=== PATIENT | female | born 1975 | race Two or more races ===

== ENCOUNTER 2016-03-22 19:18 | Emergency (ER) | payer MEDICAID, OTHER ==
[~2016-03-22] VITALS: Ht 167.6 cm; Wt 90.7 kg
[2016-03-22 20:05] LABS: Basophils # (auto) 0 uL; Basophils % (auto) 0.2 % (0.0-2.0); Eosinophils # (auto) 0 uL; Eosinophils % (auto) 0.5 % (0.0-7.0); Hematocrit 39.5 % (36.0-46.0); Hemoglobin 12.6 g/dL (12.2-16.2); Lymphocytes # (auto) 1.7 uL; Lymphocytes % (auto) 32.8 % (10.0-50.0); Mean Corpuscular Hemoglobin 27.7 pg (28.0-32.0); Mean Corpuscular Hgb Conc. 31.9 g/dL (32.0-36.0); Mean Corpuscular Volume 86.8 fL (80.0-100.0); Mean Platelet Volume 8.3 fL (7.4-10.4); Monocytes # (auto) 0.3 uL; Monocytes % (auto) 6.2 % (0.0-12.0); Neutrophils # (auto) 3.2 uL; Neutrophils % (auto) 60.3 % (37.0-80.0); Platelet Count (auto) 233 10^3/uL (140-450); Red Cell Distribution Width 13.7 % (11.6-16.0); White Blood Cell 5.3 10^3/uL (4.4-10.8)
[2016-03-22 20:30] LABS: Urine Bilirubin Negative (Negative); Urine Blood Negative /uL (Negative); Urine Color Yellow (Yellow); Urine Glucose Normal (Normal); Urine Ketone Negative (Negative); Urine Urobilinogen Normal (Negative); Urine pH 5.5 (5.0-8.0)
[2016-03-22 20:31] LABS: Urine Nitrite Negative (Negative); Urine RBC 0 /hpf (0 - 4); Urine Squamous Epithelial Cell FEW /hpf (<5)
[2016-03-22] MEDS ORDERED: SODIUM CHLORIDE 0.9% 1,000 ML IV ONE (20:34)
[2016-03-22 20:42] LABS: Albumin 3.7 g/dL (3.4-5.0); BUN/Creatinine Ratio 14.5; Bilirubin, Total 0.3 mg/dL (0.2-1.0); Calcium 8.3 mg/dL (8.5-10.1); Potassium 3.5 mmol/L (3.5-5.1); Total Protein 7.4 g/dL (6.4-8.2)
[2016-03-22] MEDS ORDERED: LORazepam 2MG/ML-1ML VIAL IV ONE (20:45)
[2016-03-22 21:48] VITALS: BP 175/109
== END 2016-03-23 00:49 | disposition home or self-care (01) ==
LOC: EDBD 19:18 → ER 19:23
DX: F41.9 Anxiety disorder, unspecified (principal); I10 Essential (primary) hypertension; E07.9 Disorder of thyroid, unspecified; E05.90 Thyrotoxicosis, unspecified without thyrotoxic crisis or storm; Z88.6 Allergy status to analgesic agent; R51 Headache
CPT/HCPCS: 36415; 70450; 80053; 81001; 81025; 85025; 96361; 96374; 99285; J2060; J7030

== ENCOUNTER 2018-09-28 12:14 | Emergency (ER) | payer BC, MEDICAID ==
[~2018-09-28] VITALS: Ht 167.6 cm; Wt 90.7 kg
[2018-09-28] MEDS ORDERED: cloNIDine HCL 0.1 MG TAB PO ONE ×2 (14:30→15:15)
[2018-09-28] MEDS ORDERED: ACETAMINOPHEN 500 MG TAB PO ONE (15:00)
[2018-09-28] MEDS ORDERED: ONDANSETRON ODT 4 MG TAB PO ONE (15:30)
[2018-09-28] MEDS ORDERED: PROMETHAZINE HCL 25 MG/ML 1ML IM ONE (15:45)
[2018-09-28 17:12] VITALS: BP 153/86
== END 2018-09-28 17:35 | disposition home or self-care (01) ==
LOC: ER 12:14
DX: I10 Essential (primary) hypertension (principal); H65.06 Acute serous otitis media, recurrent, bilateral; K04.7 Periapical abscess without sinus; Z90.89 Acquired absence of other organs; Z88.8 Allergy status to other drugs, medicaments and biological substances
CPT/HCPCS: 70450; 96374; 99284; J2550; Q0162

== ENCOUNTER 2019-02-10 14:46 | Inpatient (IN) | payer BC ==
[~2019-02-10] VITALS: Ht 167.6 cm; Wt 91.3 kg
[2019-02-10] MEDS ORDERED: DILTIAZEM HCL 25 MG/5 ML VIAL IV ONE (15:15)
[2019-02-10 15:30] LABS: Basophils # (auto) 0 uL; Basophils % (auto) 0.3 % (0.0-2.0); Eosinophils # (auto) 0 uL; Hematocrit 43.3 % (36.0-46.0); Lymphocytes # (auto) 0.6 uL; Lymphocytes % (auto) 5.9 % (10.0-50.0); Mean Corpuscular Hemoglobin 29.3 pg (28.0-32.0); Mean Corpuscular Hgb Conc. 34.5 g/dL (32.0-36.0); Mean Corpuscular Volume 84.8 fL (80.0-100.0); Monocytes # (auto) 0.3 uL; Monocytes % (auto) 2.7 % (0.0-12.0); Neutrophils # (auto) 9.4 uL; Neutrophils % (auto) 91.1 % (37.0-80.0); Nucleated Red Blood Cells % 0.2 %; Platelet Count (auto) 294 10^3/uL (140-450); Red Blood Cells 5.11 10^6/uL (4.0-5.20); Red Cell Distribution Width 13.7 % (11.8-14.3); White Blood Cell 10.3 10^3/uL (4.4-10.8)
[2019-02-10] MEDS ORDERED: FOLIC ACID 1 MG, MULTIPLE VITAMIN 10 ML, MAGNESIUM SULF SDV 50% 8 MEQ, THIAMINE INJ 100... INJ ONE ×5 (15:30)
[2019-02-10 15:45] LABS: Calcium 8.8 mg/dL (8.5-10.1); Potassium 3.9 mmol/L (3.5-5.1)
[2019-02-10 15:52] LABS: BUN/Creatinine Ratio 22.8; Bilirubin, Total 0.6 mg/dL (0.2-1.0); Total Protein 8.2 g/dL (6.4-8.2)
[2019-02-10] MEDS ORDERED: DILTIAZEM 125mg/125ml BAG KIT 125 ML IV ONE (16:30)
[2019-02-10] MEDS ORDERED: ONDANSETRON HCL 4 MG/2 ML VIAL ONE (17:44)
[2019-02-10] MEDS ORDERED: ONDANSETRON HCL 4 MG/2 ML VIAL IV ONE (17:45)
[2019-02-10] MEDS ORDERED: AMIODARONE HCL 150 MG in D5W 5% 100 ML IV ONE (19:30)
[2019-02-10] MEDS ORDERED: MORPHINE SULF INJ 2 MG/ML SYRINGE 1ML IV PRN (19:30)
[2019-02-10] MEDS ORDERED: NITROGLYCERIN 0.4 MG SL TAB SL PRN (19:30)
[2019-02-10] MEDS ORDERED: ASPirin 81 mg TAB PO ONE (19:30)
[2019-02-10] MEDS ORDERED: SODIUM CHLORIDE 0.9% 1,000 ML IV ONE (19:30)
[2019-02-10] MEDS ORDERED: AMIODARONE HCL 900 MG in DEXTROSE 500 ML IV SCH (19:33)
[2019-02-10 19:55] LABS: Urine Bacteria FEW /hpf (None Seen); Urine Blood Negative /uL (Negative); Urine Hyaline Cast FEW /lpf (0 - 2); Urine Specific Gravity 1.009 (1.001-1.035); Urine WBC 1 /hpf (0 - 5)
[2019-02-10 20:00] VITALS: BP 158/96
[2019-02-10 20:12] VITALS: BP 158/96
[2019-02-10 20:19] LABS: Alcohol, Urine < 3.0 mg/dL (0-5); Amphetamine Screen, Urine NEGATIVE (NEGATIVE); Barbiturate Scree,Urine NEGATIVE (NEGATIVE); Benzodiazephine Screen, Urine NEGATIVE (NEGATIVE); Cannabinoid Screen, Urine POSITIVE (NEGATIVE); Cocaine Screen, Urine NEGATIVE (NEGATIVE); Opiate Scree,Urine NEGATIVE (NEGATIVE); Phencyclidine Screen, Urine NEGATIVE (NEGATIVE)
[2019-02-10] MEDS: METOPROLOL TARTRATE 25 MG TAB PO SCH (21:33)
[2019-02-10 22:00] VITALS: BP 136/73
[2019-02-10] MEDS: MORPHINE SULFATE 4 MG/ML SYR/VIAL IV PRN (22:25)
[2019-02-10 23:45] VITALS: BP 127/67
[2019-02-11] VITALS: BP 127/67
[2019-02-11] MEDS: ONDANSETRON HCL 4 MG/2 ML VIAL IV PRN ×2 (00:17→11:47)
[2019-02-11] MEDS ORDERED: AMIODARONE HCL 900 MG in DEXTROSE 500 ML IV SCH (01:33)
[2019-02-11 02:00] VITALS: BP 133/65
[2019-02-11 04:00] VITALS: BP 123/67
[2019-02-11 05:45] VITALS: BP 123/67
[2019-02-11 07:37] LABS: Magnesium 2.1 mg/dL (1.6-2.6); Potassium 3.6 mmol/L (3.5-5.1)
[2019-02-11 07:39] LABS: BUN/Creatinine Ratio 20.8; Calcium 8.7 mg/dL (8.5-10.1)
[2019-02-11] MEDS: METOPROLOL TARTRATE 25 MG TAB PO SCH ×2 (09:45→22:12)
[2019-02-11] MEDS ORDERED: ASPirin-EC 81 mg tab PO ONE (11:45)
[2019-02-11] MEDS: MORPHINE SULFATE 4 MG/ML SYR/VIAL IV PRN (11:46)
[2019-02-11] MEDS ORDERED: POTASSIUM CHL 20 Meq TABLET PO ONE (14:00)
[2019-02-11] MEDS: SODIUM CHLORIDE 0.9% 1,000 ML IV SCH ×2 (14:39→22:11)
[2019-02-11] MEDS ORDERED: ENALAPRILAT 1.25 MG/ML-1ML VIAL IV PRN (17:30)
[2019-02-11 21:59] VITALS: BP 140/80
[2019-02-12 05:09] VITALS: BP 148/78
[2019-02-12 06:41] LABS: Basophils # (auto) 0 uL; Basophils % (auto) 0.6 % (0.0-2.0); Eosinophils # (auto) 0.1 uL; Hematocrit 38.9 % (36.0-46.0); Hemoglobin 13.4 g/dL (12.2-16.2); Lymphocytes # (auto) 2.3 uL; Lymphocytes % (auto) 37.4 % (10.0-50.0); Mean Corpuscular Hemoglobin 29.3 pg (28.0-32.0); Mean Corpuscular Hgb Conc. 34.3 g/dL (32.0-36.0); Mean Corpuscular Volume 85.4 fL (80.0-100.0); Monocytes # (auto) 0.5 uL; Monocytes % (auto) 8.5 % (0.0-12.0); Neutrophils # (auto) 3.2 uL; Neutrophils % (auto) 52.5 % (37.0-80.0); Nucleated Red Blood Cells % 0.2 %; Platelet Count (auto) 252 10^3/uL (140-450); Red Blood Cells 4.56 10^6/uL (4.0-5.20); Red Cell Distribution Width 14.1 % (11.8-14.3); White Blood Cell 6.2 10^3/uL (4.4-10.8)
[2019-02-12 06:46] LABS: Potassium 3.9 mmol/L (3.5-5.1)
[2019-02-12 07:05] LABS: BUN/Creatinine Ratio 17.9; Calcium 8.2 mg/dL (8.5-10.1)
[2019-02-12 08:00] VITALS: BP 126/69
[2019-02-12] MEDS: METOPROLOL TARTRATE 25 MG TAB PO SCH (09:43)
[2019-02-12] MEDS ORDERED: amLODIPine BESYLATE 5 MG TAB PO SCH (10:00)
[2019-02-12] MEDS ORDERED: ASPirin-EC 81 mg tab PO SCH (10:00)
[2019-02-12] MEDS: SODIUM CHLORIDE 0.9% 1,000 ML IV SCH (10:01)
[2019-02-12] MEDS ORDERED: LISINOPRIL 20 MG TAB PO ONE (11:00)
[2019-02-12] MEDS ORDERED: ASPI-123 PO (11:15)
[2019-02-12] MEDS ORDERED: ATOR20TA PO (11:15)
[2019-02-12] MEDS ORDERED: MET25T PO (11:15)
[2019-02-12] MEDS ORDERED: LISI-646 PO (11:25)
[2019-02-12] MEDS ORDERED: AML5T PO (11:25)
[2019-02-12 12:00] VITALS: BP 155/110
[2019-02-12 14:20] VITALS: BP 135/89
== END 2019-02-12 14:40 | disposition home or self-care (01) | DRG 281 ==
LOC: EDBD 14:46 → ER 14:46 → TELE 14:47 → TELE-WESTW 02-11 19:04
PROVIDERS: ADMIT Nurse Practitioner Acute Care; ATTEND Internal Medicine
DX: I21.A1 Myocardial infarction type 2 (principal); F10.239 Alcohol dependence with withdrawal, unspecified; E66.01 Morbid (severe) obesity due to excess calories; E78.5 Hyperlipidemia, unspecified; I48.0 Paroxysmal atrial fibrillation; I10 Essential (primary) hypertension; E86.0 Dehydration; F12.90 Cannabis use, unspecified, uncomplicated; E05.90 Thyrotoxicosis, unspecified without thyrotoxic crisis or storm; F41.9 Anxiety disorder, unspecified; Z79.82 Long term (current) use of aspirin; Z79.899 Other long term (current) drug therapy; Z88.5 Allergy status to narcotic agent
CPT/HCPCS: 36415; 71045; 80048; 80053; 80061; 80307; 80320; 81001; 81025; 83735; 83880; 84443; 84484; 85025; 87081; 93005; 93306; 96361; 96365; 96375; G0378; J2405; J7060

== ENCOUNTER 2020-12-31 18:35 | Emergency (ER) | payer BC ==
[~2020-12-31] VITALS: Ht 167.6 cm; Wt 81.6 kg
[~2020-12-31 18:35] MED LIST: AML5T PO; ASPI-123 PO; ATOR20TA PO; LISI20TA28 PO; MET25T PO
[2020-12-31 20:09] LABS: Basophils # (auto) 0 10 ^3/uL (0-0.2); Basophils % (auto) 0.7 % (0.0-2.0); Eosinophils # (auto) 0.1 10 ^3/uL (0-0.8); Eosinophils % (auto) 1.2 % (0.0-7.0); Hematocrit 39.5 % (36.0-46.0); Hemoglobin 12.8 g/dL (12.2-16.2); Lymphocytes # (auto) 1.9 10 ^3/uL (0.4-5.4); Lymphocytes % (auto) 33.7 % (10.0-50.0); Mean Corpuscular Hemoglobin 28.3 pg (28.0-32.0); Mean Corpuscular Hgb Conc. 32.4 g/dL (32.0-36.0); Mean Corpuscular Volume 87.5 fL (80.0-100.0); Monocytes # (auto) 0.4 10 ^3/uL (0-1.3); Neutrophils # (auto) 3.3 10 ^3/uL (1.6-8.6); Neutrophils % (auto) 57.4 % (37.0-80.0); Nucleated Red Blood Cells % 0.1 %; Red Blood Cells 4.52 10^6/uL (4.0-5.20); Red Cell Distribution Width 13.9 % (11.8-14.3); White Blood Cell 5.7 10^3/uL (4.4-10.8)
[2020-12-31 20:26] LABS: Albumin 3.5 g/dL (3.4-5.0); Calcium 8.5 mg/dL (8.5-10.1); Magnesium 2.6 mg/dL (1.6-2.6)
[2020-12-31 20:31] LABS: BUN/Creatinine Ratio 19.7; Bilirubin, Total 0.2 mg/dL (0.2-1.0); Total Protein 7.3 g/dL (6.4-8.2)
[2020-12-31 20:58] LABS: Urine Bacteria FEW /hpf (None Seen); Urine Blood 2+ /uL (Negative); Urine Specific Gravity 1.005 (1.001-1.035); Urine WBC 5 /hpf (0 - 5)
[2020-12-31] MEDS ORDERED: ACETAMINOPHEN 325 MG TAB PO ONE (21:45)
[2020-12-31] MEDS ORDERED: METOCLOPRAMIDE HCL 5MG/ml INJ 2ml VIAL IV ONE (21:45)
[2020-12-31 23:32] VITALS: BP 131/75
== END 2020-12-31 23:25 | disposition home or self-care (01) ==
LOC: ER 18:35 → EDBD 18:35 → ER 23:25
DX: E86.0 Dehydration (principal); R42 Dizziness and giddiness; R51.9 Headache, unspecified; I10 Essential (primary) hypertension; F12.10 Cannabis abuse, uncomplicated; Z90.89 Acquired absence of other organs; Z88.6 Allergy status to analgesic agent
CPT/HCPCS: 36415; 71045; 80053; 81001; 83605; 83735; 84443; 84484; 85025; 93005; 96374; 99285; J2765

== ENCOUNTER 2021-02-24 09:04 | Emergency (ER) | payer BC ==
[~2021-02-24] VITALS: Ht 167.6 cm; Wt 81.6 kg
[2021-02-24 10:02] LABS: Urine Bacteria NONE SEEN /hpf (None Seen); Urine Blood 2+ /uL (Negative); Urine Specific Gravity 1.015 (1.001-1.035); Urine WBC 2 /hpf (0 - 5)
[2021-02-24 15:54] VITALS: BP 141/95
== END 2021-02-24 16:06 | disposition home or self-care (01) ==
LOC: ER 09:04
DX: O20.0 Threatened abortion (principal); O16.1 Unspecified maternal hypertension, first trimester; O99.321 Drug use complicating pregnancy, first trimester; F12.10 Cannabis abuse, uncomplicated; Z90.89 Acquired absence of other organs; Z88.6 Allergy status to analgesic agent; Z3A.01 Less than 8 weeks gestation of pregnancy
CPT/HCPCS: 36415; 76801; 76817; 81001; 84702